=== PATIENT | female | born 1960 | race African-American/Black ===

== ENCOUNTER 2018-04-09 16:15 | Emergency (ER) | payer MEDICARE, MEDICAID ==
[2018-04-09] MEDS ORDERED: levETIRAcetam 500 MG TAB ONE (16:18)
[2018-04-09] MEDS ORDERED: Morphine 4 MG/ML VIAL ONE (17:29)
[2018-04-09] MEDS ORDERED: Promethazine HCl 25 MG/ML VIAL ONE (17:30)
[2018-04-09] MEDS ORDERED: Sodium Chloride 0.9% 100 ML ONE (17:31)
[2018-04-09] MEDS ORDERED: diphenhydrAMINE 50 MG/ML VIAL ONE (18:01)
== END 2018-04-09 19:54 | disposition home or self-care (01) ==
LOC: MADERS 16:15
DX: G40.909 Epilepsy, unspecified, not intractable, without status epilepticus (principal); Z86.718 Personal history of other venous thrombosis and embolism; Z86.711 Personal history of pulmonary embolism; Z86.73 Personal history of transient ischemic attack (TIA), and cerebral infarction without residual deficits; F32.9 Major depressive disorder, single episode, unspecified; Z79.899 Other long term (current) drug therapy; Z79.82 Long term (current) use of aspirin
CPT/HCPCS: 96365; 96375; J1200; J1642; J2270; J2550; J7050

== ENCOUNTER 2018-04-10 18:50 | Emergency (ER) | payer MEDICARE, MEDICAID ==
[2018-04-10] MEDS ORDERED: levETIRAcetam 500 MG TAB ONE (19:34)
[2018-04-10 19:49] LABS: #Basophils 0.1 thou/uL (0.0-0.2); #Eosinphils 0.2 thou/uL (0.0-0.7); #Lymphocytes 1.5 thou/uL (1.20-3.40); #Monocytes 0.4 thou/uL (0.11-0.59); #Neutrophils 4.4 thou/uL (1.40-6.50); %Basophils 1.9 % (0.0-1.0); %Eosinophils 3.2 % (0.0-10.0); %Lymphocytes 22.8 % (21.0-51.0); %Monocytes 6.1 % (0.0-10.0); %Neutrophils 65.9 % (42.0-75.0); Hemoglobin 11.9 g/dL (12.0-16.0); Mean Corpuscular Hemoglobin 29.5 pg (27.0-31.0); Mean Corpuscular Volume 89.5 fL (78.0-98.0); Mean Platelet Volume 6.3 fL (7.4-10.4); Platelet Count 287 thou/uL (130-400); RBC Distribution Width 12.8 % (11.5-14.5); Red Blood Cell (RBC) Count 4.05 mill/uL (4.20-5.40); White Blood Cell (WBC) Count 6.6 thou/uL (4.8-10.8)
[2018-04-10 19:52] LABS: ALT (SGPT) 19 U/L (8-55); AST (SGOT) 28 U/L (5-34); Alkaline Phosphatase 118 U/L (40-150); Anion Gap 14 mmol/L (10-20); BUN (Urea Nitrogen) 7 mg/dL (9.8-20.1); Bilirubin, Total 0.6 mg/dL (0.2-1.2); Calc. Creatinine Clearance 0 mL/min (70-130); Calcium 9.6 mg/dL (7.8-10.44); Carbon Dioxide 24 mmol/L (22-29); Chloride 108 mmol/L (98-107); Estimated GFR-MDRD 87; Globulin 3.9 g/dL (2.4-3.5); Glucose 94 mg/dL (70-105); Potassium 3.2 mmol/L (3.5-5.1); Protein, Total 7.9 g/dL (6.0-8.3); Sodium 143 mmol/L (136-145)
[2018-04-10] MEDS ORDERED: diphenhydrAMINE 50 MG/ML VIAL ONE (20:02)
--- NOTE | 2018-04-10 20:27 | CT ---
CT BRAIN PERFORMED WITHOUT CONTRAST ENHANCEMENT: HISTORY: Seizure. Altered mental status. COMPARISON: 03/28/2018 FINDINGS: The ventricular and cisternal system is within normal limits. There are no signs of intracerebral he morrhage or extraaxial fluid collections. The mastoid air cells and visualized sinuses appear clear. IMPRESSION: No acute intracranial abnormalities. POS: [facility] [place]
== END 2018-04-10 20:38 | disposition short-term general hospital (02) ==
LOC: MADERS 18:50
DX: G40.909 Epilepsy, unspecified, not intractable, without status epilepticus (principal); F32.9 Major depressive disorder, single episode, unspecified; Z86.73 Personal history of transient ischemic attack (TIA), and cerebral infarction without residual deficits; Z79.899 Other long term (current) drug therapy; Z86.718 Personal history of other venous thrombosis and embolism; Z79.82 Long term (current) use of aspirin
CPT/HCPCS: 70450; 80053; 85025; 93005; 96374; J1200

== ENCOUNTER 2018-04-30 17:51 | Emergency (ER) | payer MEDICARE, MEDICAID ==
[2018-04-30] MEDS ORDERED: Prochlorperazine 10 MG/2 ML VIAL ONE (18:54)
[2018-04-30] MEDS ORDERED: Sodium Chloride 0.9% 1,000 ML ONE ×2 (18:54→20:33)
--- NOTE | 2018-04-30 19:04 | CT ---
CT BRAIN NONCONTRAST: HISTORY: 57-year-old female with nausea and vomiting. FINDINGS: There is no midline shift or any other mass effect. There is no evidence of acute intracranial hemor rhage, large cortical infarct, obstructive hydrocephalus, or extraaxial fluid collection. The calvar ium is intact. IMPRESSION: No acute intracranial findings. clint POS: [facility]
[2018-04-30 19:20] LABS: #Basophils 0.1 thou/uL (0.0-0.2); #Eosinphils 0.1 thou/uL (0.0-0.7); #Lymphocytes 1.2 thou/uL (1.20-3.40); #Monocytes 0.6 thou/uL (0.11-0.59); #Neutrophils 5.8 thou/uL (1.40-6.50); %Basophils 1.4 % (0.0-1.0); %Lymphocytes 15.5 % (21.0-51.0); %Monocytes 7.3 % (0.0-10.0); %Neutrophils 74.9 % (42.0-75.0); Hemoglobin 13.6 g/dL (12.0-16.0); Mean Corpuscular Volume 87.9 fL (78.0-98.0); Mean Platelet Volume 7.1 fL (7.4-10.4); Platelet Count 270 thou/uL (130-400); RBC Distribution Width 12.7 % (11.5-14.5); Red Blood Cell (RBC) Count 4.68 mill/uL (4.20-5.40); White Blood Cell (WBC) Count 7.7 thou/uL (4.8-10.8)
[2018-04-30 19:40] LABS: ALT (SGPT) 17 U/L (8-55); AST (SGOT) 23 U/L (5-34); Alkaline Phosphatase 115 U/L (40-150); Anion Gap 16 mmol/L (10-20); BUN (Urea Nitrogen) 4 mg/dL (9.8-20.1); Bilirubin, Total 0.9 mg/dL (0.2-1.2); Calc. Creatinine Clearance 0 mL/min (70-130); Calcium 9.8 mg/dL (7.8-10.44); Carbon Dioxide 21 mmol/L (22-29); Chloride 108 mmol/L (98-107); Estimated GFR-MDRD 89; Globulin 4.4 g/dL (2.4-3.5); Glucose 91 mg/dL (70-105); Lipase 13 U/L (8-78); Potassium 3.9 mmol/L (3.5-5.1); Protein, Total 8.4 g/dL (6.0-8.3); Sodium 141 mmol/L (136-145)
[2018-04-30] MEDS ORDERED: Morphine 4 MG/ML VIAL ONE (20:33)
[2018-04-30 22:25] LABS: Bacteria/HPF Rare-Few HPF (None Seen); Bilirubin Negative (Negative); Blood, Urine Small (Negative); Clarity Slightly Cloudy (Clear); Glucose, Urine (Dipstick) Negative (Negative); Leukocyte Negative (Negative); Nitrite Negative (Negative); Protein, Urine (Dipstick) Negative (Neg-Trace); Urobilinogen 0.2 mg/dL (0.2-1.0); pH, Urine 7.5 (5.0-9.0)
== END 2018-04-30 22:19 | disposition home or self-care (01) ==
LOC: MADERS 17:51
DX: K52.9 Noninfective gastroenteritis and colitis, unspecified (principal); I48.91 Unspecified atrial fibrillation; Z86.73 Personal history of transient ischemic attack (TIA), and cerebral infarction without residual deficits; G40.909 Epilepsy, unspecified, not intractable, without status epilepticus; F32.9 Major depressive disorder, single episode, unspecified; Z79.899 Other long term (current) drug therapy; Z79.82 Long term (current) use of aspirin
CPT/HCPCS: 36415; 70450; 80053; 81003; 81015; 83690; 85025; 96361; 96374; 96375; 96376; J0780; J1642; J2270; J7050

== ENCOUNTER 2018-06-05 19:19 | Emergency (ER) | payer MEDICARE, MEDICAID ==
--- NOTE | 2018-06-05 20:01 | CT ---
CT HEAD WITHOUT CONTRAST: 06/05/2018 HISTORY: Seizure. COMPARISON: 04/30/2018 TECHNIQUE: Axial CT imaging at 5 mm intervals, from the vertex through the skull base, with coronal and sagittal reformatted imaging. FINDINGS: The imaged paranasal sinuses and mastoid air cells are well aerated. No intracranial hemorrhage, midline shift, mass effect, or ventricular enlargement. IMPRESSION: No acute findings. POS: [facility]
[2018-06-05] MEDS ORDERED: levETIRAcetam 500 MG TAB ONE (20:07)
--- NOTE | 2018-06-05 20:08 | CT ---
CT CERVICAL SPINE: 06/05/2018 HISTORY: Trauma. Pain. Seizure. COMPARISON: None. TECHNIQUE: Axial CT imaging at 2.5 mm intervals, from the lung apices through the skull base, without contrast. Coronal and sagittal reformatted imaging obtained. FINDINGS: There is an incompletely imaged left-sided Port-A-Cath. The imaged lung apices are unremarkable. The imaged paranasal sinuses and mastoid air cells are within normal limits. The C1 ring is intact. The occipital condyles, the dens, and the C1-2 articulation appear within nor mal limits. There is moderate degenerative change at the atlantoaxial interspace. The cervicothorac ic junction appears intact. Cervical vertebral body height and alignment appear within normal limits . No prevertebral soft tissue swelling seen. There is disk space narrowing with anterior osteophyte formation at C4-C5, C5-C6, and C6-C7. Posteri or osteophyte formation noted at C5-C6 and C6-C7. No acute fracture or evidence of dislocation is seen within the cervical spine. IMPRESSION: 1. Cervical spine degenerative change. 2. No acute osseous abnormality. POS: [facility]
[2018-06-05] MEDS ORDERED: Metoclopramide HCl 10 MG TAB ONE (20:23)
[2018-06-05] MEDS ORDERED: diphenhydrAMINE 25 MG CAP ONE (20:23)
== END 2018-06-05 20:45 | disposition home or self-care (01) ==
LOC: MADERS 19:19
DX: G40.909 Epilepsy, unspecified, not intractable, without status epilepticus (principal); I48.91 Unspecified atrial fibrillation; F32.9 Major depressive disorder, single episode, unspecified; Z86.73 Personal history of transient ischemic attack (TIA), and cerebral infarction without residual deficits; Z86.711 Personal history of pulmonary embolism; Z79.899 Other long term (current) drug therapy; Z79.82 Long term (current) use of aspirin
CPT/HCPCS: 70450; 72125

== ENCOUNTER 2018-07-02 20:16 | Emergency (ER) | payer MEDICARE, MEDICAID ==
[2018-07-02] MEDS ORDERED: Morphine 4 MG/ML VIAL ONE (21:16)
[2018-07-02] MEDS ORDERED: Promethazine HCl 25 MG/ML VIAL ONE (21:16)
[2018-07-02] MEDS ORDERED: Sodium Chloride 0.9% 100 ML ONE (21:17)
[2018-07-02 21:41] LABS: #Basophils 0.1 thou/uL (0.0-0.2); #Eosinphils 0.4 thou/uL (0.0-0.7); #Lymphocytes 1.6 thou/uL (1.20-3.40); #Monocytes 0.5 thou/uL (0.11-0.59); #Neutrophils 3.7 thou/uL (1.40-6.50); %Basophils 1.8 % (0.0-1.0); %Lymphocytes 25.3 % (21.0-51.0); %Monocytes 7.5 % (0.0-10.0); %Neutrophils 59.3 % (42.0-75.0); Mean Corpuscular HGB CONC 32.6 g/dL (32.0-36.0); Mean Corpuscular Hemoglobin 29.7 pg (27.0-31.0); Mean Corpuscular Volume 91.1 fL (78.0-98.0); Mean Platelet Volume 6.9 fL (7.4-10.4); Platelet Count 246 thou/uL (130-400); RBC Distribution Width 13.5 % (11.5-14.5); Red Blood Cell (RBC) Count 3.69 mill/uL (4.20-5.40); White Blood Cell (WBC) Count 6.2 thou/uL (4.8-10.8)
[2018-07-02 21:50] LABS: INR-International Normal Ratio 1.2; PTT 23.1 SEC (22.9-36.1); Prothrombin Time 15.3 SEC (12.0-14.7)
[2018-07-02 22:01] LABS: ALT (SGPT) 10 U/L (8-55); AST (SGOT) 12 U/L (5-34); Albumin 3.8 g/dL (3.5-5.0); Alkaline Phosphatase 120 U/L (40-150); Anion Gap 11 mmol/L (10-20); BUN (Urea Nitrogen) 8 mg/dL (9.8-20.1); Bilirubin, Total 0.4 mg/dL (0.2-1.2); Calc. Creatinine Clearance 0 mL/min (70-130); Calcium 9.4 mg/dL (7.8-10.44); Carbon Dioxide 27 mmol/L (22-29); Chloride 109 mmol/L (98-107); Estimated GFR-MDRD Greater than 90; Globulin 3.5 g/dL (2.4-3.5); Glucose 84 mg/dL (70-105); Potassium 3.8 mmol/L (3.5-5.1); Protein, Total 7.3 g/dL (6.0-8.3); Sodium 143 mmol/L (136-145)
== END 2018-07-02 22:30 | disposition home or self-care (01) ==
LOC: MADERS 20:16
DX: R60.0 Localized edema (principal); I48.91 Unspecified atrial fibrillation; G40.909 Epilepsy, unspecified, not intractable, without status epilepticus; F32.9 Major depressive disorder, single episode, unspecified; Z79.82 Long term (current) use of aspirin; Z79.899 Other long term (current) drug therapy
CPT/HCPCS: 80053; 83880; 84484; 85025; 85610; 85730; 96365; 96375; J1642; J2270; J2550; J7050